=== PATIENT | male | born 1990 | race Caucasian/White ===

== ENCOUNTER 2024-03-09 15:45 | Emergency (ER) | payer OTHER ==
[~2024-03-09] VITALS: Ht 185.4 cm; Wt 106.8 kg
[~2024-03-09 15:45] MED LIST: METH5SOL20 PO
[2024-03-09 15:47] VITALS: BP 141/93; PULSE 111; RESP 16; TEMP 98.2; O2SAT 96
[2024-03-09] MEDS: QUEtiapine FUMARATE 100 MG TABLET PO ONE (18:46)
[2024-03-09] MEDS: LORazepam 2 MG TABLET PO ONE (18:47)
[2024-03-09 19:16] LABS: BASOPHILS % (AUTO) 0.4 % (0.0-2.0); EOSINOPHILS % (AUTO) 0.3 % (1.0-6.0); HEMOGLOBIN 13.7 g/dL (13.5-17.5); LYMPHOCYTES # (AUTO) 1.5 K/uL (1.0-4.8); LYMPHOCYTES % (AUTO) 10.3 % (22.0-44.0); MEAN CORPUSCULAR HEMOGLOBIN 31.6 pg (26.0-34.0); MEAN CORPUSCULAR HGB CONC 33.5 G/dL (31.0-37.0); MEAN CORPUSCULAR VOLUME 95 fL (80-100); MONOCYTES # (AUTO) 1.1 K/uL (0.1-1.0); MONOCYTES % (AUTO) 7.8 % (2.0-9.0); NEUTROPHILS # (AUTO) 11.5 K/uL (1.8-7.7); NEUTROPHILS % (AUTO) 81.2 % (40.0-70.0); PLATELET COUNT (AUTO) 225 K/uL (150-450); RED BLOOD CELL COUNT(AUTO) 4.34 MIL/uL (4.50-5.90); RED CELL DISTRIBUTION WIDTH 13.1 % (11.5-14.5); WHITE BLOOD COUNT (AUTO) 14.2 K/uL (4.5-11.0)
[2024-03-09 19:21] LABS: ALCOHOL, BLOOD (SERUM) 4 mg/dL (0-10)
[2024-03-09 19:26] LABS: ANION GAP 16 mmol/L (8-16); CALCIUM, TOTAL 8.8 mg/dL (8.8-10.5); CARBON DIOXIDE 21 mmol/L (22-29); CHLORIDE 97 mmol/L (98-107); CREATININE 0.91 mg/dL (0.60-1.30); GLOMERULAR FILTR. RATE CALC > 60 mL/min (>60); GLUCOSE,RANDOM 86 mg/dL (70-110); POTASSIUM 4.2 mmol/L (3.5-5.1); SODIUM SERUM 134 mmol/L (136-145); UREA NITROGEN, BLOOD 27 mg/dL (7-18)
[2024-03-09] MEDS ORDERED: QUET100T PO (19:54)
[2024-03-09] MEDS ORDERED: BACI28.410 TP (19:54)
[2024-03-09] MEDS ORDERED: IBUP-1554 PO (19:54)
[2024-03-09] MEDS ORDERED: HYDR-4808 PO (19:54)
[2024-03-09 22:18] LABS: ALCOHOL, URINE DRUG SCREEN NEGATIVE (NEGATIVE); AMPHET/METH SCREEN,URINE POSITIVE (NEGATIVE); BARBITURATE SCREEN, URINE NEGATIVE (NEGATIVE); BENZODIAZEPINES SCREEN,URINE NEGATIVE (NEGATIVE); CANNABINOID SCREEN,URINE NEGATIVE (NEGATIVE); COCAINE SCREEN,URINE NEGATIVE (NEGATIVE); METHADONE SCREEN, URINE NEGATIVE (NEGATIVE); OPIATE SCREEN,URINE NEGATIVE (NEGATIVE); PHENCYCLIDINE SCREEN,URINE NEGATIVE (NEGATIVE)
== END 2024-03-09 22:57 | disposition home or self-care (01) ==
LOC: EMS 15:45
DX: F20.9 Schizophrenia, unspecified (principal); F10.10 Alcohol abuse, uncomplicated; Z59.00 Homelessness unspecified
CPT/HCPCS: 99283; 80048; 85025; 36415; 80307; G0480